=== PATIENT | female | born 1940 | race Caucasian/White ===

== ENCOUNTER 2021-01-28 10:59 | Emergency (ER) | payer OTHER, MEDICARE ==
[2021-01-28] MEDS ORDERED: NORCO 5-325 TA1 EACH PO (12:48)
== END 2021-01-28 13:36 | disposition home or self-care (01) ==
LOC: FER 10:59
DX: S42.352A Displaced comminuted fracture of shaft of humerus, left arm, initial encounter for closed fracture (principal); I25.2 Old myocardial infarction; W01.0XXA Fall on same level from slipping, tripping and stumbling without subsequent striking against object, initial encounter; Y92.89 Other specified places as the place of occurrence of the external cause; Y99.0 Civilian activity done for income or pay
CPT/HCPCS: 73030; J7030

== ENCOUNTER 2021-02-02 16:18 | Day surgery (SDCO) | payer MEDICARE, OTHER ==
[~2021-02-02 16:18] MED LIST: NORCO 5-325 TA1 EACH PO
[2021-02-02 17:41] LABS: EOSINOPHIL 3.1 % (0-7); HCT 34.3 % (37.0-47.0); HGB 11.5 g/dl (12.5-16.0); LYMPHOCYTE 28.2 % (15-48); MCH 29.7 pg (25.0-31.0); MCHC 33.5 g/dL (32.0-36.0); MCV 88.6 fL (78.0-100.0); MONOCYTE 7.9 % (0-12); MPV 8.2 fL (6.0-9.5); NEUTROPHIL 59.6 % (41-80); NRBC 0; PLT 248 K/uL (150-400); RBC 3.87 M/uL (4.20-5.40); RDW 13.2 % (11.5-14.0); WBC 6.1 K/uL (4.0-10.5)
[2021-02-02 18:09] LABS: ALBUMIN 3.1 g/dL (3.4-5.0); BILIRUBIN - TOTAL 0.4 mg/dL (0.2-1.0); BUN/CREAT RATIO (CALC) 11.7 RATIO; CREATININE 1.03 mg/dL (0.51-0.95); GLOBULIN (CALCULATION) 3.5 g/dL; POTASSIUM 4.1 mmol/L (3.5-5.1); TOTAL PROTEIN 6.6 g/dL (6.4-8.2)
[2021-02-02 18:12] LABS: PRO-BNP 1423 pg/mL (<450)
[2021-02-02] MEDS ORDERED: BYSTOLIC5 MG PO (22:03)
[2021-02-02] MEDS ORDERED: NORCO 5/3251 EACH PO (22:04)
[2021-02-02] MEDS ORDERED: ASPIRIN325 MG PO (22:06)
[2021-02-03 04:35] LABS: EOSINOPHIL 3.8 % (0-7); HCT 32.8 % (37.0-47.0); HGB 11.1 g/dl (12.5-16.0); LYMPHOCYTE 33.7 % (15-48); MCH 29.7 pg (25.0-31.0); MCHC 33.8 g/dL (32.0-36.0); MCV 87.7 fL (78.0-100.0); MONOCYTE 8.7 % (0-12); MPV 8.2 fL (6.0-9.5); NEUTROPHIL 52.4 % (41-80); NRBC 0; PLT 239 K/uL (150-400); RBC 3.74 M/uL (4.20-5.40); RDW 13.1 % (11.5-14.0)
[2021-02-03 05:01] LABS: ALBUMIN 2.9 g/dL (3.4-5.0); BILIRUBIN - TOTAL 0.4 mg/dL (0.2-1.0); BUN/CREAT RATIO (CALC) 15.8 RATIO; CREATININE 0.76 mg/dL (0.51-0.95); GLOBULIN (CALCULATION) 3.1 g/dL; POTASSIUM 3.4 mmol/L (3.5-5.1)
[2021-02-03 05:10] LABS: CKMB 4.7 ng/mL (0.0-3.6); PRO-BNP 2154 pg/mL (<450)
[2021-02-03 06:30] LABS: MAGNESIUM 1.8 mg/dL (1.8-2.4)
[2021-02-03] MEDS ORDERED: POTASSIUM CHLO10 ME1 PO (14:07)
[2021-02-03] MEDS ORDERED: FUROSEMIDE 20MG20 MG PO (14:07)
--- NOTE | 2021-02-03 14:59 | NUR ---
1458 PT DISCHARGE ORDERS DISCUSSED WITH PT AND DAUGHTER, VERBALIZED UNDERSTANDING. IV DC'D AT THIS TIME. PT TRANSPORTED VIA WHEELCHAIR TO DAUGHTERS CAR. PT TOLERATED WELL.
== END 2021-02-03 15:00 | disposition home or self-care (01) ==
LOC: FER 16:18 → FMS 19:40
PROVIDERS: Emergency Medicine; Nurse Practitioner; ADMIT Internal Medicine
DX: I11.0 Hypertensive heart disease with heart failure (principal); I50.9 Heart failure, unspecified; Z20.822 Contact with and (suspected) exposure to COVID-19; Z86.79 Personal history of other diseases of the circulatory system; Z95.5 Presence of coronary angioplasty implant and graft
CPT/HCPCS: 36415; 71045; 80053; 80061; 82553; 83735; 83880; 84100; 84443; 84484; 85025; 93005; 94010; G0378; J1650; J1940; U0002

== ENCOUNTER 2022-04-14 14:01 | Emergency (ER) | payer MEDICARE, OTHER ==
[~2022-04-14 14:01] MED LIST changes: +ASPIRIN325 MG PO; +BYSTOLIC5 MG PO; +FUROSEMIDE 20MG20 MG PO; +NORCO 5/3251 EACH PO; +POTASSIUM CHLO10 ME1 PO
[2022-04-14 15:17] LABS: BILIRUBIN NEGATIVE (NEGATIVE); BLOOD 3+ Ery/uL (NEGATIVE); CLARITY CLEAR (CLEAR); COLOR YELLOW (YELLOW); GLUCOSE (U) NORMAL (NORMAL); LEUKOCYTES 2+ Leu/uL (NEGATIVE); NITRITE NEGATIVE (NEGATIVE); PROTEIN NEGATIVE (NEGATIVE); SPECIFIC GRAVITY <=1.005 (1.001-1.030); UROBILINOGEN 0.2 mg/dL (0.2-1.0)
[2022-04-14 15:26] LABS: BACTERIA TRACE
[2022-04-14 15:43] LABS: BASOPHIL 0.8 % (0-2); EOSINOPHIL 1.2 % (0-7); HGB 12.8 g/dl (12.5-16.0); LYMPHOCYTE 26.4 % (15-48); MCH 29.2 pg (25.0-31.0); MCHC 33.7 g/dL (32.0-36.0); MCV 86.8 fL (78.0-100.0); MPV 8.1 fL (6.0-9.5); NEUTROPHIL 64.2 % (41-80); NRBC 0; PLT 360 K/uL (150-400); RBC 4.38 M/uL (4.20-5.40); WBC 7.8 K/uL (4.0-10.5)
[2022-04-14 15:48] LABS: INR 1.01 (0.9-1.2); PROTHROMBIN TIME 12.7 SECONDS (11.8-13.4); PTT 36.8 SECONDS (24.4-34.7)
[2022-04-14 15:57] LABS: ALBUMIN 3.8 g/dL (3.4-5.0); BILIRUBIN - TOTAL 0.6 mg/dL (0.2-1.0); CREATININE 0.7 mg/dL (0.51-0.95); GLOBULIN (CALCULATION) 3.4 g/dL; POTASSIUM 3.6 mmol/L (3.5-5.1); TOTAL PROTEIN 7.2 g/dL (6.4-8.2)
== END 2022-04-14 17:32 | disposition other institution (70) ==
LOC: FER 14:01
PROVIDERS: Emergency Medicine
DX: I63.89 Other cerebral infarction (principal); I50.9 Heart failure, unspecified; Z79.82 Long term (current) use of aspirin
CPT/HCPCS: 36415; 70450; 71250; 80053; 81001; 83735; 83880; 84484; 85025; 85610; 85730; 93005; J3475; J7030

== ENCOUNTER 2022-05-30 16:44 | Emergency (ER) | payer MEDICARE, OTHER ==
[2022-05-30 18:37] LABS: BASOPHIL 0.8 % (0-2); EOSINOPHIL 1.6 % (0-7); HCT 35.4 % (37.0-47.0); HGB 11.6 g/dl (12.5-16.0); LYMPHOCYTE 39.8 % (15-48); MCH 29.1 pg (25.0-31.0); MCHC 32.8 g/dL (32.0-36.0); MCV 88.9 fL (78.0-100.0); MPV 8.2 fL (6.0-9.5); NEUTROPHIL 48.6 % (41-80); NRBC 0; PLT 337 K/uL (150-400); RBC 3.98 M/uL (4.20-5.40); RDW 13.3 % (11.5-14.0); WBC 6.1 K/uL (4.0-10.5)
[2022-05-30 18:43] LABS: INR 0.94 (0.9-1.2); PROTHROMBIN TIME 12.3 SECONDS (11.9-13.9)
[2022-05-30 18:44] LABS: PTT 31.7 SECONDS (24.9-34.6)
[2022-05-30 18:56] LABS: BILIRUBIN NEGATIVE (NEGATIVE); BLOOD NEGATIVE Ery/uL (NEGATIVE); CLARITY CLEAR (CLEAR); COLOR YELLOW (YELLOW); GLUCOSE (U) NORMAL (NORMAL); LEUKOCYTES 2+ Leu/uL (NEGATIVE); NITRITE NEGATIVE (NEGATIVE); PROTEIN NEGATIVE (NEGATIVE); UROBILINOGEN 0.2 mg/dL (0.2-1.0); pH 7.5 (5.0-9.0)
[2022-05-30 19:05] LABS: BACTERIA 1+; URINARY WBC TNTC
[2022-05-30 20:41] LABS: ALBUMIN 3.1 g/dL (3.4-5.0); BILIRUBIN - TOTAL 0.4 mg/dL (0.2-1.0); BUN/CREAT RATIO (CALC) 10.5 RATIO; CREATININE 0.76 mg/dL (0.51-0.95); GLOBULIN (CALCULATION) 2.7 g/dL; MAGNESIUM 1.9 mg/dL (1.8-2.4); POTASSIUM 4.6 mmol/L (3.5-5.1); TOTAL PROTEIN 5.8 g/dL (6.4-8.2)
== END 2022-05-30 20:33 | disposition home or self-care (01) ==
LOC: FER 16:44
PROVIDERS: Emergency Medicine
DX: N39.0 Urinary tract infection, site not specified (principal); H53.8 Other visual disturbances; R60.0 Localized edema; Z86.73 Personal history of transient ischemic attack (TIA), and cerebral infarction without residual deficits
CPT/HCPCS: 36415; 70450; 71045; 80053; 81001; 83735; 83880; 84145; 84443; 84484; 85025; 85610; 85730; 87076; 87088; 87186; 93005